=== PATIENT | male | born 1985 | race Caucasian/White ===

== ENCOUNTER 2024-08-08 09:12 | Observation (INO) ==
--- NOTE | 2024-08-08 09:26 | DR.ABDMALE ---
HPI Time seen Time Seen by Provider: 08/08/24 09:24 PCP Primary Care Physician: GERARDO Complaint Chief Complaint:: Pt c/o 3 days of constant LUQ pain described as a moderate pain that is "pinching" in nature. Pain is worse with bending over, Denies any alleviating factors. Pt has had some mild nausea today but denies vomiting. Pt c/o constipation. Pt states that he normally has BM 3-4 times daily and has not had a BM in 3 days. Pt also reports a 17 lb unintentional weight loss in the past month. COVID-19 Coronavirus risk:travel/contact w/high risk person: No Has patient experienced Coronavirus symptoms: No Reviewed Nurses Notes Review: Yes Mode of arrival Mode of Arrival: Ambulatory Timing Onset of Chief Complaint: 08/06/24 PMH PMH Past Medical History: No Past Surgical History: Yes Surgical History: Ortho Surgery Past Surgical History Comment: left shoulder surgery Family History History of Family Medical Conditions: Yes Family Medical History: Diabetes Mellitus Social History Does patient currently use any type of tobacco product: Yes Have you used tobacco products in the last 12 months: Yes Type of Tobacco Use: Cigarettes Does any household member use tobacco: No Alcohol Use: None Do you use any recreational Drugs:: No Lives With: Family Lives Where: Home Travel Risk Coronavirus risk:travel/contact w/high risk person: No Has patient experienced Coronavirus symptoms: No Infectious screening In the last 2 months have you had wt loss of >10#?: NO Have you had fever, night sweats or hemotysis?: No Have you traveled outside the country in the last 6 months?: No Isolation: Standard ROS Review of Systems Constitutional: No Symptoms Reported Eyes: No Symptoms Reported ENTM: No Symptoms Reported Respiratoy: No Symptoms Reported Cardiovascular: No Symptoms Reported Gastrointestinal/Abdominal: No Symptoms Reported Genitourinary: No Symptoms Reported Neurological: No Symptoms Reported Musculoskeletal: No Symptoms Reported Integumentary: No Symptoms Reported Hematologic/Lymphatic: No Symptoms Reported Endocrine: No Symptoms Reported Psychiatric: No Symptoms Reported All Other Systems: Reviewed and Negative PE Vital Signs Vital Signs: Temp Pulse Resp BP Pulse Ox O2 Del Method 08/08/24 09:20 98.0 F 82 20 120/77 96 Room Air General Limitations: No Limitations General Appearance: Alert and In No Apparent Distress Head Head Exam: Normal Inspection Eyes Eye exam: Normal Appearance; negative Scleral Icterus or Conjunctival Injection ENT ENT Exam: Normal Exam, Normal Oropharynx, Normal External Ear Exam and TM's Normal Bilaterally Neck Neck Exam: Normal Inspection and Trachea Midline Chest Chest Inspection: Normal Inspection and Symmetric Chest Wall Rise; negative Tenderness Respiratory Respiratory Exam: Normal Lung Sounds Bilat; negative Accessory Muscle Use, Chest Wall Tenderness or Respiratory Distress Respiratory Exam: Bilateral: Clear to Auscultation Cardiovascular Cardiovascular Exam: Regular Rate, Normal Rhythm and Normal Heart Sounds; negative Systolic Murmur or Diastolic Murmur Abdominal Exam Abdominal Exam: Normal Inspection, Normal Bowel Sounds and Soft; negative Tenderness Rectal Rectal Exam: Deferred Back Back Exam: Normal Inspection; negative (R) CVA Tenderness or (L) CVA Tenderness Extremeties Extremities Exam: Normal Inspection and Normal Capillary Refill Exam: Male: Deferred Neurologic Neurological Exam: Alert and Oriented X3; negative Motor Sensory Deficit Psychiatric Psychiatric Exam: Normal Affect and Normal Mood Skin Skin Exam: Warm and Intact ROR Labs Reviewed 08/08/24 09:57 08/08/24 09:57 Laboratory: WBC 10.1 X10^3/uL (3.6-10.0) H 08/08/24 09:57 RBC 5.67 X10^6/uL (4.7-6.0) 08/08/24 09:57 Hgb 17.4 g/dL (13.5-18.0) 08/08/24 09:57 Hct 50.0 % (42.0-54.0) 08/08/24 09:57 MCV 88.2 fL (80.0-100.0) 08/08/24 09:57 MCH 30.7 pg (27.0-34.0) 08/08/24 09:57 MCHC 34.8 g/dL (33.0-35.0) 08/08/24 09:57 RDW 13.0 % (11.6-16.5) 08/08/24 09:57 Plt Count 193 X10^3/uL (150.0-450.0) 08/08/24 09:57 MPV 7.5 fL (7.4-11.0) 08/08/24 09:57 Neut % (Auto) 71.0 % (42.0-75.0) 08/08/24 09:57 Lymph % (Auto) 20.4 % (21.0-51.0) L 08/08/24 09:57 [place] % (Auto) 6.6 % (0.0-13.0) 08/08/24 09:57 Eos % (Auto) 1.0 % (0.9-2.9) 08/08/24 09:57 Baso % (Auto) 1.0 % (0.2-1.0) 08/08/24 09:57 Neut # (Auto) 7.2 x10^3/uL (2.2-4.8) H 08/08/24 09:57 Lymph # (Auto) 2.1 X10^3/uL (1.3-2.9) 08/08/24 09:57 [place] # (Auto) 0.7 x10^3/uL (0.3-0.8) 08/08/24 09:57 Eos # (Auto) 0.1 x10^3/uL (0.0-0.2) 08/08/24 09:57 Baso # (Auto) 0.1 X10^3/uL (0.0-0.1) 08/08/24 09:57 Absolute Nucleated RBC 0.2 /100WBC 08/08/24 09:57 Sodium 140 mmol/L (136-145) 08/08/24 09:57 Corrected Sodium TNP 08/08/24 09:57 Potassium 4.3 mmol/L (3.5-5.1) 08/08/24 09:57 Chloride 104 mmol/L (98-107) 08/08/24 09:57 Carbon Dioxide 32.0 mmol/L (21-32) 08/08/24 09:57 BUN 12 mg/dL (7-18) 08/08/24 09:57 Creatinine 0.99 mg/dL (0.70-1.30) 08/08/24 09:57 Est GFR (MDRD) Af Amer > 60 (>60) 08/08/24 09:57 Est GFR (MDRD) Non-Af > 60 (>60) 08/08/24 09:57 Glucose 99 mg/dL (65-99) 08/08/24 09:57 Calcium 8.8 mg/dL (8.5-10.1) 08/08/24 09:57 Corrected Calcium TNP 08/08/24 09:57 Total Bilirubin 0.50 mg/dL (0.2-1.0) 08/08/24 09:57 AST 14 Units/L (15-37) L 08/08/24 09:57 ALT 27 Units/L (12-78) 08/08/24 09:57 Alkaline Phosphatase 75 Units/L (46-116) 08/08/24 09:57 Total Protein 6.9 g/dL (6.4-8.2) 08/08/24 09:57 Albumin 3.8 g/dL (3.4-5.0) 08/08/24 09:57 Globulin 3.1 g/dL (2.5-4.5) 08/08/24 09:57 Albumin/Globulin Ratio 1.2 Ratio (1.1-2.1) 08/08/24 09:57 Amylase 96 Units/L (25-115) 08/08/24 09:58 Lipase 235 Units/L (16-77) H 08/08/24 09:58 Specimen Type Clean catch urine 08/08/24 08:19 Urine Color Yellow (YELLOW) 08/08/24 08:19 Urine Appearance Clear (CLEAR) 08/08/24 08:19 Urine pH 6.0 (5.0 - 8.0) 08/08/24 08:19 Ur Specific [place] 1.025 (1.000-1.030) 08/08/24 08:19 Urine Protein 1+ (NEGATIVE) 08/08/24 08:19 Urine Glucose (UA) Negative (NEGATIVE) 08/08/24 08:19 Urine Ketones Negative (NEGATIVE) 08/08/24 08:19 Urine Blood 1+ (NEGATIVE) 08/08/24 08:19 Urine Nitrite Negative (NEGATIVE) 08/08/24 08:19 Urine Bilirubin Negative (NEGATIVE) 08/08/24 08:19 Urine Urobilinogen Normal (NORMAL) 08/08/24 08:19 Ur Leukocyte Esterase Negative (NEGATIVE) 08/08/24 08:19 Urine RBC None seen /HPF (0-3) 08/08/24 08:19 Urine WBC None seen /HPF (0-5) 08/08/24 08:19 Ur Squamous Epith Cells Rare /HPF (NEGATIVE) 08/08/24 08:19 Amorphous Sediment Trace /HPF (NEGATIVE) 08/08/24 08:19 Urine Bacteria Negative /HPF (NEGATIVE) 08/08/24 08:19 Urine Sperm Rare /HPF (NEGATIVE) 08/08/24 08:19 Ur Culture Indicated? No/not indicated 08/08/24 08:19 Opioid Opioid Risk Tool Personal Hx of Substance Abuse: Prescription Drugs Age (Dev box if 16-45): Yes History of Preadolescent Sexual Abuse: No Total: 1 Total Score Risk Category: Low Risk Copyright: Shashi DÍAZ predicting aberrant behaviors Discharge Plan Diagnosis Discharge Problem: Abdominal pain, Cholelithiasis, Acute gallstone pancreatitis Discharge Plan Patient Disposition: ADMITTED INPATIENT Condition: Stable Prescriptions: New ketorolac 10 mg tablet 10 mg PO QID PRNQty: 20 0RF Rx Instructions: maximum total duration of 5 days from all oral, intranasal, or parenteral formulations famotidine [Pepcid] 40 mg tablet 40 mg PO BID Qty: 20 0RF Discharge Comment: RETURN TO ER IF WORSE. Health Concerns: Post Hospitalization: new medications and changes needed to prevent readmission or further decline. Pt educated and given instructions on all concerns. Plan of Treatment: Continue with present treatment and follow up plan. Pt is to keep follow up appointment as instructed and take medications as ordered. Orders to Discharge Patient Discharge Orders: Transfer (Routine); Ordered 08/08/24 Ordered By: YASMIN SHOEMAKER Follow ups/Referrals Follow ups/Referrals: EMMANUEL HAYES [STAFF PHYSICIAN] - 1 day NFD,None [Primary Care Provider] - 3 days Instructions Instructions: Cholelithiasis, Abdominal Pain, Adult Stand Alone Forms: Find Help Web Site, Post Hospital Follow Up Care
[2024-08-08 09:39] LABS: BILIRUBIN,URINE NEGATIVE (NEGATIVE); BLOOD/HEMOGLOBIN,URINE 1+ (NEGATIVE); GLUCOSE, URINE NEGATIVE (NEGATIVE); KETONES,URINE NEGATIVE (NEGATIVE); LEUKOCYTE ESTERASE ,URINE NEGATIVE (NEGATIVE); NITRITES,URINE NEGATIVE (NEGATIVE); PROTEIN,URINE 1+ (NEGATIVE); UROBILINOGEN,URINE NORMAL (NORMAL)
[2024-08-08 09:41] LABS: APPEARANCE,URINE CLEAR (CLEAR); COLOR,URINE YELLOW (YELLOW)
[2024-08-08 09:50] LABS: BACTERIA,URINE NEGATIVE /HPF (NEGATIVE); RBC,URINE NONE SEEN /HPF (0-3); SQUAMOUS EPITHELIAL CELL,UR RARE /HPF (NEGATIVE)
[2024-08-08 09:51] LABS: SPERM,URINE RARE /HPF (NEGATIVE)
[2024-08-08 10:03] LABS: BASOPHILS # (AUTO) 0.1 X10^3/uL (0.0-0.1); EOSINOPHILS # (AUTO) 0.1 x10^3/uL (0.0-0.2); HEMOGLOBIN 17.4 g/dL (13.5-18.0); LYMPHOCYTES # (AUTO) 2.1 X10^3/uL (1.3-2.9); LYMPHOCYTES % (AUTO) 20.4 % (21.0-51.0); MEAN CORPUSCULAR HEMOGLOBIN 30.7 pg (27.0-34.0); MEAN CORPUSCULAR HGB CONC 34.8 g/dL (33.0-35.0); MEAN CORPUSCULAR VOLUME 88.2 fL (80.0-100.0); MEAN PLATELET VOLUME 7.5 fL (7.4-11.0); MONOCYTES # (AUTO) 0.7 x10^3/uL (0.3-0.8); MONOCYTES % (AUTO) 6.6 % (0.0-13.0); NEUTROPHILS # (AUTO) 7.2 x10^3/uL (2.2-4.8); PLATELET COUNT 193 X10^3/uL (150.0-450.0); RED BLOOD COUNT 5.67 X10^6/uL (4.7-6.0); WHITE BLOOD COUNT 10.1 X10^3/uL (3.6-10.0)
[2024-08-08 10:19] LABS: ALANINE AMINOTRANSFERASE 27 Units/L (12-78); ALBUMIN 3.8 g/dL (3.4-5.0); ALKALINE PHOSPHATASE 75 Units/L (46-116); ASPARTATE AMINO TRANSFERASE 14 Units/L (15-37); BLOOD UREA NITROGEN 12 mg/dL (7-18); CALCIUM 8.8 mg/dL (8.5-10.1); CHLORIDE 104 mmol/L (98-107); CREATININE 0.99 mg/dL (0.70-1.30); GLUCOSE 99 mg/dL (65-99); POTASSIUM 4.3 mmol/L (3.5-5.1); SODIUM 140 mmol/L (136-145); TOTAL PROTEIN 6.9 g/dL (6.4-8.2); eGFR NON BLACK RACES > 60 (>60)
--- NOTE | 2024-08-08 11:04 | CT ---
EXAM: ABDOMEN/PELVIS W/O CON HISTORY: LUQ pain; COMPARISON: None TECHNIQUE: CT of the abdomen and pelvis obtained without IV contrast. Study limited due to lack of IV contrast. Dose reduction techniques including Automated Exposure Control (AEC) and adjustment of mA and kV were utilized. FINDINGS: The visualized portions of the lower thorax demonstrate no acute process. No acute osseous abnormality. The liver, gallbladder, spleen, pancreas, bilateral adrenal glands, and bilateral kidneys demonstrate no acute process given lack of IV contrast. Cholelithiasis. Indeterminate left renal lesion which measures Hounsfield units less than 20. No evidence of bowel obstruction. The appendix is unremarkable. The bladder is unremarkable. No free air or fluid. Nonaneurysmal aorta. IMPRESSION: No acute findings in the abdomen or pelvis. Cholelithiasis without evidence of acute cholecystitis. THIS IS AN ELECTRONICALLY VERIFIED FINAL REPORT 08/08/2024 11:01 AM - Electronically signed by Todd Gan MD
[2024-08-08 11:43] LABS: AMYLASE 96 Units/L (25-115); LIPASE 235 Units/L (16-77)
[2024-08-08] MEDS ORDERED: ZOFRAN INJ 4 MG VIAL IVP PRN (15:10)
[2024-08-08 15:34] VITALS: BMI 35.1
[2024-08-08] MEDS: NS 1,000 ML IV 1,000 ML IV SCH (15:47)
[2024-08-09] MEDS: MORPHINE SULFATE INJ 2 MG INJ IVP PRN (03:25)
[2024-08-09 05:56] LABS: BASOPHILS # (AUTO) 0.1 X10^3/uL (0.0-0.1); BASOPHILS % (AUTO) 1.1 % (0.2-1.0); EOSINOPHILS # (AUTO) 0.2 x10^3/uL (0.0-0.2); EOSINOPHILS % (AUTO) 3.1 % (0.9-2.9); HEMATOCRIT 48.1 % (42.0-54.0); HEMOGLOBIN 16.9 g/dL (13.5-18.0); LYMPHOCYTES # (AUTO) 2.6 X10^3/uL (1.3-2.9); LYMPHOCYTES % (AUTO) 38.1 % (21.0-51.0); MEAN CORPUSCULAR HEMOGLOBIN 30.6 pg (27.0-34.0); MEAN CORPUSCULAR VOLUME 87.4 fL (80.0-100.0); MEAN PLATELET VOLUME 7.5 fL (7.4-11.0); MONOCYTES # (AUTO) 0.6 x10^3/uL (0.3-0.8); MONOCYTES % (AUTO) 8.9 % (0.0-13.0); NEUTROPHILS # (AUTO) 3.3 x10^3/uL (2.2-4.8); NEUTROPHILS % (AUTO) 48.8 % (42.0-75.0); PLATELET COUNT 182 X10^3/uL (150.0-450.0); RED BLOOD COUNT 5.51 X10^6/uL (4.7-6.0); RED CELL DISTRIBUTION WIDTH 13.3 % (11.6-16.5); WHITE BLOOD COUNT 6.8 X10^3/uL (3.6-10.0)
[2024-08-09 06:09] LABS: ALANINE AMINOTRANSFERASE 25 Units/L (12-78); ALBUMIN 3.4 g/dL (3.4-5.0); ALKALINE PHOSPHATASE 73 Units/L (46-116); AMYLASE 63 Units/L (25-115); ASPARTATE AMINO TRANSFERASE 15 Units/L (15-37); BLOOD UREA NITROGEN 10 mg/dL (7-18); CALCIUM 8.7 mg/dL (8.5-10.1); CARBON DIOXIDE 25.7 mmol/L (21-32); CHLORIDE 106 mmol/L (98-107); CREATININE 0.82 mg/dL (0.70-1.30); GLUCOSE 88 mg/dL (65-99); LIPASE 73 Units/L (16-77); POTASSIUM 4.1 mmol/L (3.5-5.1); SODIUM 139 mmol/L (136-145); TOTAL PROTEIN 6.5 g/dL (6.4-8.2); eGFR NON BLACK RACES > 60 (>60)
--- NOTE | 2024-08-09 08:26 | DR.PROGNOT ---
HOSPITAL PROGRESS NOTE Progress Note for Day of: Progress Note Date: 08/09/24 Chief Complaint Chief Complaint: Still complaining of a significant pain localized to the epigastrium and left upper quadrant, no further nausea today, no vomitingq As serum lipase is back to normal. Afebrile Abdomen is soft and flat with moderate tenderness left upper quadrant, no rebound or rigidity bowel sounds were slightly hypoactive.. Past Medical Family Social History Allergies: Allergies No Known Drug Allergies Allergy (Verified 08/08/24 09:20) Vital Signs Vital Signs: Vital Signs Temperature 97.7 F Pulse Rate [Right Radial] 58 Respiratory Rate 18 Respiratory Rate 18 Respiratory Rate 19 Blood Pressure [Right Arm] 108/66 O2 Sat by Pulse Oximetry 99 Physical Exam Oriented: Normal Eyes: Normal Ear: Normal Nose: Normal Throat: Normal Respiratory: Normal Cardiovascular: Normal : Normal GI:Auscultation: Decreased GI: Tenderness: LUQ, Epigastric and Other (Soft and flat abdomen with epigastric and left upper quadrant tenderness, no rebound, bowel sounds hypoactive.) Speech Pattern: Clear and Appropriate Laboratory and Diagnostics 08/09/24 05:44 08/09/24 05:44 Labs: Laboratory WBC 6.8 X10^3/uL (3.6-10.0) 08/09/24 05:44 RBC 5.51 X10^6/uL (4.7-6.0) 08/09/24 05:44 Hgb 16.9 g/dL (13.5-18.0) 08/09/24 05:44 Hct 48.1 % (42.0-54.0) 08/09/24 05:44 MCV 87.4 fL (80.0-100.0) 08/09/24 05:44 MCH 30.6 pg (27.0-34.0) 08/09/24 05:44 MCHC 35.0 g/dL (33.0-35.0) 08/09/24 05:44 RDW 13.3 % (11.6-16.5) 08/09/24 05:44 Plt Count 182 X10^3/uL (150.0-450.0) 08/09/24 05:44 MPV 7.5 fL (7.4-11.0) 08/09/24 05:44 Neut % (Auto) 48.8 % (42.0-75.0) 08/09/24 05:44 Lymph % (Auto) 38.1 % (21.0-51.0) 08/09/24 05:44 [place] % (Auto) 8.9 % (0.0-13.0) 08/09/24 05:44 Eos % (Auto) 3.1 % (0.9-2.9) H 08/09/24 05:44 Baso % (Auto) 1.1 % (0.2-1.0) H 08/09/24 05:44 Neut # (Auto) 3.3 x10^3/uL (2.2-4.8) 08/09/24 05:44 Lymph # (Auto) 2.6 X10^3/uL (1.3-2.9) 08/09/24 05:44 [place] # (Auto) 0.6 x10^3/uL (0.3-0.8) 08/09/24 05:44 Eos # (Auto) 0.2 x10^3/uL (0.0-0.2) 08/09/24 05:44 Baso # (Auto) 0.1 X10^3/uL (0.0-0.1) 08/09/24 05:44 Absolute Nucleated RBC 0.2 /100WBC 08/09/24 05:44 Sodium 139 mmol/L (136-145) 08/09/24 05:44 Corrected Sodium TNP 08/09/24 05:44 Potassium 4.1 mmol/L (3.5-5.1) 08/09/24 05:44 Chloride 106 mmol/L (98-107) 08/09/24 05:44 Carbon Dioxide 25.7 mmol/L (21-32) 08/09/24 05:44 BUN 10 mg/dL (7-18) 08/09/24 05:44 Creatinine 0.82 mg/dL (0.70-1.30) 08/09/24 05:44 Est GFR (MDRD) Af Amer > 60 (>60) 08/09/24 05:44 Est GFR (MDRD) Non-Af > 60 (>60) 08/09/24 05:44 Glucose 88 mg/dL (65-99) 08/09/24 05:44 Calcium 8.7 mg/dL (8.5-10.1) 08/09/24 05:44 Corrected Calcium TNP 08/09/24 05:44 Total Bilirubin 0.70 mg/dL (0.2-1.0) 08/09/24 05:44 AST 15 Units/L (15-37) 08/09/24 05:44 ALT 25 Units/L (12-78) 08/09/24 05:44 Alkaline Phosphatase 73 Units/L (46-116) 08/09/24 05:44 Total Protein 6.5 g/dL (6.4-8.2) 08/09/24 05:44 Albumin 3.4 g/dL (3.4-5.0) 08/09/24 05:44 Globulin 3.1 g/dL (2.5-4.5) 08/09/24 05:44 Albumin/Globulin Ratio 1.1 Ratio (1.1-2.1) 08/09/24 05:44 Amylase 63 Units/L (25-115) 08/09/24 05:44 Lipase 73 Units/L (16-77) 08/09/24 05:44 Specimen Type Clean catch urine 08/08/24 08:19 Urine Color Yellow (YELLOW) 08/08/24 08:19 Urine Appearance Clear (CLEAR) 08/08/24 08:19 Urine pH 6.0 (5.0 - 8.0) 08/08/24 08:19 Ur Specific [place] 1.025 (1.000-1.030) 08/08/24 08:19 Urine Protein 1+ (NEGATIVE) 08/08/24 08:19 Urine Glucose (UA) Negative (NEGATIVE) 08/08/24 08:19 Urine Ketones Negative (NEGATIVE) 08/08/24 08:19 Urine Blood 1+ (NEGATIVE) 08/08/24 08:19 Urine Nitrite Negative (NEGATIVE) 08/08/24 08:19 Urine Bilirubin Negative (NEGATIVE) 08/08/24 08:19 Urine Urobilinogen Normal (NORMAL) 08/08/24 08:19 Ur Leukocyte Esterase Negative (NEGATIVE) 08/08/24 08:19 Urine RBC None seen /HPF (0-3) 08/08/24 08:19 Urine WBC None seen /HPF (0-5) 08/08/24 08:19 Ur Squamous Epith Cells Rare /HPF (NEGATIVE) 08/08/24 08:19 Amorphous Sediment Trace /HPF (NEGATIVE) 08/08/24 08:19 Urine Bacteria Negative /HPF (NEGATIVE) 08/08/24 08:19 Urine Sperm Rare /HPF (NEGATIVE) 08/08/24 08:19 Ur Culture Indicated? No/not indicated 08/08/24 08:19 Assessment and Plan 1: Subsiding gallstone pancreatitis. Same hydration, start on full liquid diet Laparoscopic cholecystectomy in the morning.. Problem Patient Problems: Patient Problems (Updated 08/08/24 @ 14:45 by YASMIN SHOEMAKER) Abdominal pain (Acute) R10.9 Cholelithiasis (Acute) K80.20 Acute gallstone pancreatitis (Acute) K85.10
--- NOTE | 2024-08-09 08:36 | EKG ---
Test Reason : pre-op Blood Pressure : */* mmHG Vent. Rate : 45 BPM Atrial Rate : 45 BPM P-R Int : 164 ms QRS Dur : 82 ms QT Int : 438 ms P-R-T Axes : 47 -7 51 degrees QTc Int : 378 ms Sinus bradycardia Otherwise normal ECG No previous ECGs available Confirmed by Praveen Aguiar MD ([id number]) on 08/09/2024 6:50:15 PM Referred By: Confirmed By: Praveen Aguiar MD
[2024-08-09] MEDS ORDERED: HIBICLENS WASH ONE (08:52)
[2024-08-09] MEDS: REGLAN INJ 10 MG VIAL IVP ONE (08:58)
[2024-08-09] MEDS: NOZIN NASAL SANITIZER TP ONE ×2 (08:58→11:32)
[2024-08-09] MEDS: ZOFRAN INJ 4 MG VIAL ONE (09:55)
[2024-08-09] MEDS: KETAMINE HCL ONE (09:55)
[2024-08-09] MEDS: PEPCID 20 MG VIAL ONE (09:55)
[2024-08-09] MEDS: BRIDION ONE (09:55)
[2024-08-09] MEDS: ZEMURON 100 MG VIAL ONE (09:55)
[2024-08-09] MEDS: OFIRMEV IV 1000 MG VIAL 1,000 MG/100 ML VIAL IV ONE (09:55)
[2024-08-09] MEDS: DIPRIVAN VIAL 20 ML ONE (09:55)
[2024-08-09] MEDS: ROBINUL ONE (09:55)
[2024-08-09] MEDS: VERSED ONE (09:56)
[2024-08-09] MEDS: FENTANYL VIAL INJ 100 mcg ONE (09:56)
[2024-08-09] MEDS: LR 1,000 ML IV 1,000 ML IV ONE (11:32)
[2024-08-09] MEDS: DUONEB 0.5 MG/3 MG (3 mL) NEB ONE (11:33)
[2024-08-09] MEDS: LR 1,000 ML IV 900 ML IV PRN (11:40)
[2024-08-09] MEDS: VERSED IVP PRN (11:40)
[2024-08-09] MEDS: ZOFRAN INJ 4 MG VIAL IVP PRN ×2 (11:42→13:40)
[2024-08-09] MEDS: PEPCID 20 MG VIAL IVP PRN (11:43)
[2024-08-09] MEDS ORDERED: BARHEMSYS INJ IVP PRN (11:47)
[2024-08-09] MEDS ORDERED: DILAUDID INJ IVP PRN ×2 (11:47→13:37)
[2024-08-09] MEDS ORDERED: BENADRYL INJ 50 MG VIAL IVP PRN (11:47)
[2024-08-09] MEDS: ANCEF VIAL 1 GRAM ONE (12:11)
[2024-08-09] MEDS: NS 100 ML IV 100 ML ONE (12:11)
[2024-08-09] MEDS ORDERED: XYLOCAINE 2 % (PLAIN) ONE (12:22)
[2024-08-09] MEDS ORDERED: PRECEDEX INJ VIAL ONE (12:22)
[2024-08-09] MEDS: ANCEF VIAL 1 GRAM IV PRN (12:22)
[2024-08-09] MEDS ORDERED: ULTANE GAS IN ONE (12:22)
[2024-08-09] MEDS: FENTANYL VIAL INJ 100 mcg IVP PRN (12:28)
[2024-08-09] MEDS: ROBINUL IVP PRN (12:28)
[2024-08-09] MEDS: DIPRIVAN VIAL 200 ML IVP PRN (12:29)
[2024-08-09] MEDS: KETAMINE HCL IV PRN (12:35)
[2024-08-09] MEDS: DECADRON INJ ONE (12:35)
[2024-08-09] MEDS: BACTROBAN TOPICAL OINT ONE (12:41)
[2024-08-09] MEDS: OFIRMEV IV 1000 MG VIAL 1,000 MG/100 ML VIAL IV PRN (12:42)
[2024-08-09] MEDS: DECADRON INJ IVP PRN (12:49)
[2024-08-09] MEDS: LUBIFRESH PM EYE OINTMENT ONE (12:59)
[2024-08-09] MEDS ORDERED: LUBIFRESH PM EYE OINTMENT PRN (13:01)
[2024-08-09] MEDS: ZEMURON 100 MG VIAL IVP PRN (13:05)
[2024-08-09] MEDS: DILAUDID INJ ONE (13:08)
--- NOTE | 2024-08-09 13:21 | RAD ---
EXAM:CHEST, 1 VIEWHISTORY:PRE OP GB ;COMPARISON:March 2021TECHNIQUE:Single frontal radiograph of the chestFINDINGS:Heart size and mediastinal contours are normal. Lungs are clear as are the pleural spaces. No free air or pneumothorax. No acute bony abnormality.IMPRESSION:No acute radiographic abnormalities of the chestTHIS IS AN ELECTRONICALLY VERIFIED FINAL REPORT08/09/2024 1:18 PM - Electronically signed by Ang Haas MD
[2024-08-09] MEDS ORDERED: XYLOCAINE 2 % (PLAIN) PRN (13:25)
[2024-08-09] MEDS: BRIDION IVP PRN (13:26)
[2024-08-09] MEDS: PRECEDEX INJ VIAL IVP PRN (13:32)
[2024-08-09] MEDS ORDERED: ZOFRAN INJ 4 MG VIAL ONE (13:40)
[2024-08-09] MEDS: D5 1/2 NS 1,000 ML 1,000 ML IV SCH (14:34)
[2024-08-09] MEDS: ZOSYN VIAL 3.375 GRAMS 3.375 G in NS 100 ML IV 100 ML IV SCH (15:33)
[2024-08-09] MEDS: NORCO 5/325 MG TAB PO PRN (22:32)
[2024-08-09] MEDS: NS 250 ML IV 25 ML IV PRN (22:40)
[2024-08-10 05:45] LABS: BASOPHILS # (AUTO) 0.1 X10^3/uL (0.0-0.1); BASOPHILS % (AUTO) 0.5 % (0.2-1.0); EOSINOPHILS % (AUTO) 0.1 % (0.9-2.9); HEMATOCRIT 47.3 % (42.0-54.0); HEMOGLOBIN 16.3 g/dL (13.5-18.0); LYMPHOCYTES # (AUTO) 1.4 X10^3/uL (1.3-2.9); LYMPHOCYTES % (AUTO) 12.2 % (21.0-51.0); MEAN CORPUSCULAR HEMOGLOBIN 30.2 pg (27.0-34.0); MEAN CORPUSCULAR HGB CONC 34.5 g/dL (33.0-35.0); MEAN CORPUSCULAR VOLUME 87.4 fL (80.0-100.0); MEAN PLATELET VOLUME 7.9 fL (7.4-11.0); MONOCYTES # (AUTO) 0.8 x10^3/uL (0.3-0.8); MONOCYTES % (AUTO) 7.1 % (0.0-13.0); NEUTROPHILS # (AUTO) 8.9 x10^3/uL (2.2-4.8); NEUTROPHILS % (AUTO) 80.1 % (42.0-75.0); PLATELET COUNT 189 X10^3/uL (150.0-450.0); RED BLOOD COUNT 5.41 X10^6/uL (4.7-6.0); RED CELL DISTRIBUTION WIDTH 12.9 % (11.6-16.5); WHITE BLOOD COUNT 11.1 X10^3/uL (3.6-10.0)
[2024-08-10 06:10] LABS: ALANINE AMINOTRANSFERASE 41 Units/L (12-78); ALBUMIN 3.4 g/dL (3.4-5.0); ALKALINE PHOSPHATASE 73 Units/L (46-116); AMYLASE 28 Units/L (25-115); ASPARTATE AMINO TRANSFERASE 23 Units/L (15-37); BLOOD UREA NITROGEN 9 mg/dL (7-18); CALCIUM 8.8 mg/dL (8.5-10.1); CARBON DIOXIDE 28.3 mmol/L (21-32); CHLORIDE 104 mmol/L (98-107); COR NA(FOR HYPERGLY) 140 mmol/L (136-145); CREATININE 1.01 mg/dL (0.70-1.30); GLUCOSE 127 mg/dL (65-99); LIPASE 22 Units/L (16-77); POTASSIUM 4.4 mmol/L (3.5-5.1); SODIUM 139 mmol/L (136-145); TOTAL PROTEIN 6.6 g/dL (6.4-8.2); eGFR NON BLACK RACES > 60 (>60)
[2024-08-10] MEDS ORDERED: NOZIN NASAL SANITIZER TP ONE (09:00)
[2024-08-10 12:42] VITALS: BP 124/58; PULSE 72; RESP 17; TEMP 98.3; O2SAT 98
== END 2024-08-10 13:00 | disposition home or self-care (01) ==
LOC: MED/SURG 09:12 → ER 09:12 → MED/SURG 15:11
PROVIDERS: ADMIT Surgery; ATTEND Surgery
DX: K80.20 Calculus of gallbladder without cholecystitis without obstruction; Z01.810 Encounter for preprocedural cardiovascular examination; R63.4 Abnormal weight loss; G89.18 Other acute postprocedural pain; K59.09 Other constipation; K85.10 Biliary acute pancreatitis without necrosis or infection; R10.11 Right upper quadrant pain; Z68.35 Body mass index [BMI] 35.0-35.9, adult; K21.9 Gastro-esophageal reflux disease without esophagitis; R10.13 Epigastric pain